=== PATIENT | female | born 1955 | race Caucasian/White ===

== ENCOUNTER → 2018-08-15 10:05 | Outpatient (CLI) | payer MEDICARE, BC | END | disposition home or self-care (01) | LOC: D.MAMMO 09:45 | DX: Z12.31 Encounter for screening mammogram for malignant neoplasm of breast (principal) ==

== ENCOUNTER → 2018-08-27 10:00 | Outpatient (CLI) | payer MEDICARE, BC ==
--- NOTE | 2018-08-30 12:11 | ST ---
PATIENT:SHARMILA GEORGE MEDICAL RECORD: [id number] SEX: F LOCATION:[facility] ORDER #: ADMISSION DATE: 08/27/18 AGE OF PATIENT: 63 REFERRING PHYSICIAN: INTERPRETING PHYSICIAN: TEODORA MILLAN MD DATE OF SERVICE: 08/27/2018 PROCEDURE: Nuclear stress test. INDICATION: Angina, abnormal ECG, shortness of breath. She was exercised on standard Lexiscan protocol with 33 mCi of sestamibi injected at peak stress and 11 mCi were used previously for rest images. FINDINGS: Gated SPECT reveals an excellent ejection fraction at 87% with good wall motion thickening and brightness throughout the segments. SPECT IMAGING: Cardiolite was used for a myocardial perfusion agent. There is homogeneous uptake throughout all segments at rest and stress with no evidence of inducible ischemia or previous infarction. OVERALL IMPRESSION: This is a normal rest-stress Cardiolite with no evidence of inducible ischemia or previous infarction. A gated SPECT reveals preserved ejection fraction greater than 60%. At this time I would evaluate noncardiac etiology of chest pain. TRANSINT:[id number] Voice Confirmation ID: [id number] DOCUMENT ID: [id number] TEODORA MILLAN MD at 1211 CC: [id number] DICTATION DATE: 08/28/18 1153 SMELTER OPERATOR: 08/29/18 0804 [facility] CLI 08/27/18 [id number] [place] [address]
== END | disposition home or self-care (01) ==
LOC: D.HCCARDIO 10:00
DX: I20.9 Angina pectoris, unspecified (principal)

== ENCOUNTER → 2018-09-12 17:12 | Outpatient (CLI) | payer MEDICARE, BC | END | disposition home or self-care (01) | LOC: D.MAMMO 10:00 | DX: R92.8 Other abnormal and inconclusive findings on diagnostic imaging of breast (principal) ==

== ENCOUNTER → 2019-02-13 10:15 | Outpatient (CLI) | payer MEDICARE, BC | END | disposition home or self-care (01) | LOC: D.MRI 10:15 | PROVIDERS: ATTEND Orthopaedic Surgery | DX: M67.40 Ganglion, unspecified site (principal) ==

== ENCOUNTER 2019-02-25 11:00 | Day surgery (SDC) | payer MEDICARE, BC ==
[2019-02-21 11:33] LABS: HEMATOCRIT 42.1 % (36.0-48.0); HEMOGLOBIN 14.3 g/dL (12-16); MCH 29.7 pg (26.0-34.0); MCV 87.5 fL (80.0-100.0); MEAN PLATELET VOLUME 10.4 fL (7.4-10.4); RBC 4.81 10x6/uL (4.00-5.40); RDW 13.6 % (11.5-14.5)
[~2019-02-25] VITALS: Ht 160 cm; Wt 73.0 kg
[~2019-02-25 11:00] MED LIST: CENTRUM SILVER1 EAC3 PO; CINNAMON500 MG PO; CO Q-10200 MG PO; LEVO-T25 MCG PO; RED YEAST RICE600 MG PO; TOPROL XL50 MG PO
[2019-02-25 11:41] VITALS: BP 139/77; Ht 160 cm; Wt 73.0 kg
[2019-02-25] MEDS ORDERED: DURICEF500 MG PO (16:34)
[2019-02-25] MEDS ORDERED: HYDROCODON-ACE1 EAC7 PO (16:34)
--- NOTE | 2019-02-25 17:54 | NUR ---
DC INSTRUCTIONS GIVEN TO PT/SPOUSE. STATE UNDERSTANDING.
--- NOTE | 2019-02-25 18:07 | NUR ---
DC'D IV CATH FULLY INTACT.
--- NOTE | 2019-02-25 18:13 | NUR ---
PT LEFT UNIT VIA WC AT 1616
--- NOTE | 2019-02-26 07:12 | OP ---
PATIENT NAME: SHARMILA BHANDARI MEDICAL RECORD: [id number] :53 LOCATION:D.OPS ADMISSION DATE: SURGEON: JAD SANTIAGO DO DATE OF OPERATION: 02/25/2019 PROCEDURE PERFORMED: Excision of ganglion cyst on the right foot. PREOPERATIVE DIAGNOSIS: Ganglion cyst on the right foot. POSTOPERATIVE DIAGNOSIS: Ganglion cyst on the right foot. INDICATIONS: Ms. Bhandari is a 64-year-old female who presented to my office with a ganglion cyst on the right foot. I got an MRI just to ensure that it was indeed a ganglion cyst and it was. She was tired of it rubbing on her shoe. It is on the lateral and dorsal aspect of her foot. She wants something done about it. I informed her of the risks including damage to sural nerve, infection, bleeding, recurrence of the cyst as there is a high recurrence rate of these. She was okay with that as well as the risks of blood clots and even . She signed the consent. SURGEON: Jad Santiago DO DESCRIPTION OF PROCEDURE: The patient was taken to the operative suite, laid in the supine position, given general anesthetic, and LMA was placed. She was given a gram of Ancef preoperatively. The right lower extremity was prepped and draped in sterile fashion. Time-out was performed and everyone was in agreement with correct side, site, patient, and procedure. The right foot was then exsanguinated with an Esmarch and tourniquet was inflated to 250 mmHg, but it was let down after 1 minute. I decided not to use tourniquet. The incision was made just over the cyst and careful dissection was made down around the cyst. It did rupture and then the cyst was removed all the way to the stalk. The stalk was then removed where the stalk had come off of the fourth and fifth metatarsals. The bipolar was used to cauterize it in hopes it would not return. The skin was then closed with 3-0 nylon in a horizontal mattress fashion and 10 mL of 0.25% Marcaine with epinephrine was injected in the site. Adaptic, 4 x 4, cast padding, and Chapo wrap were then placed on the foot. She was placed in postop shoe. She was awakened and taken to recovery in stable condition. BLOOD LOSS: Minimal. COMPLICATIONS: None. TRANSINT:[id number] Voice Confirmation ID: [id number] DOCUMENT ID: [id number] JAD SANTIAGO DO at 0712 CC: [id number] DICTATION DATE: 02/25/19 1637 MAINFRAME APPLICATIONS DEVELOPER: 02/25/191955 [facility] 02/25/19 [facility] [address] [id number]
== END 2019-02-25 18:16 | disposition home or self-care (01) ==
LOC: D.OPS 11:00
PROVIDERS: Anesthesiology; ATTEND Orthopaedic Surgery
DX: M67.471 Ganglion, right ankle and foot (principal); Z01.812 Encounter for preprocedural laboratory examination

== ENCOUNTER → 2019-04-14 18:19 | Outpatient (CLI) | payer MEDICARE, BC ==
[2019-02-25 11:41] VITALS: BMI 28.5
[~2019-04-14 18:19] MED LIST changes: +DURICEF500 MG PO; +HYDROCODON-ACE1 EAC7 PO
== END | disposition home or self-care (01) ==
LOC: D.LABREF 18:19
PROVIDERS: ATTEND Urology
DX: R31.9 Hematuria, unspecified (principal)

== ENCOUNTER → 2019-05-15 10:00 | Outpatient (CLI) | payer MEDICARE, BC ==
[2019-02-25 11:41] VITALS: BMI 28.5
== END | disposition home or self-care (01) ==
LOC: D.MAMMO 09:30
PROVIDERS: ATTEND Family Medicine
DX: R92.8 Other abnormal and inconclusive findings on diagnostic imaging of breast (principal)

== ENCOUNTER 2019-07-17 10:05 | Day surgery (SDC) | payer MEDICARE, BC ==
[2019-07-16 14:23] LABS: HEMATOCRIT 41.9 % (36.0-48.0); HEMOGLOBIN 13.9 g/dL (12-16); MCH 30.2 pg (26.0-34.0); MCHC 33.2 g/dL (31.0-37.0); MCV 90.9 fL (80.0-100.0); MEAN PLATELET VOLUME 9.4 fL (7.4-10.4); RBC 4.61 10x6/uL (4.00-5.40); RDW 12.7 % (11.5-14.5); WBC 7.5 10x3/uL (4.8-10.8)
[~2019-07-17] VITALS: Ht 160 cm; Wt 74.8 kg
[2019-07-17] MEDS ORDERED: VITAMIN D5000 UNIT (10:47)
[2019-07-17 10:53] VITALS: BP 159/56; Ht 160 cm; Wt 74.8 kg
[2019-07-17] MEDS ORDERED: HYDROCODON-ACE1 EAC7 PO (19:19)
--- NOTE | 2019-07-17 20:00 | NUR ---
VAGINAL PACKING REMOVED
--- NOTE | 2019-07-18 10:32 | OP ---
PATIENT NAME: SHARMILA GEORGE MEDICAL RECORD: [id number] :53 LOCATION:D.OPS ADMISSION DATE: SURGEON: DAVID WILLIAMSON MD DATE OF OPERATION: 07/17/2019 SURGEON: David Williamson MD ANESTHESIA: General anesthesia by David Worley MD DIAGNOSIS: Midline cystocele, Garland-Walker grade II, with incomplete bladder emptying. Potential for stress urinary incontinence due to hypermobile urethra. PROCEDURE: 1. Cystoscopy 2. Pubovaginal sling with mesh ([employer] Obtryx II mesh graft. 3. Cystocele repair using Coloplast axis cadaveric dermis graft, 8 x 12 cm. FINDINGS: On cystoscopy, single ureteral orifices bilaterally with no bladder tumors and no bladder injury. ESTIMATED BLOOD LOSS: Less than 100 mL. CLINICAL HISTORY: This is a 64-year-old female, A0, who had a hysterectomy in 1975 for retroverted uterus with pelvic pain. She has had issues with recurrent urinary tract infections since that time. Lately, she has noticed a bulge coming out from the vaginal area. She does not have any stress urinary incontinence. However, she does have hesitancy in getting started and there is a slow urinary flow. When we checked her postvoid residual it was 91 mL. On examination, she has a cystocele, Garland-Walker grade II, and rectocele Garland-Walker grade I. She does not have any issues with defecation. She did not have any stress urinary incontinence, but there is urethral hypermobility. Because of the risk of unmasking of occult stress urinary incontinence after reduction of the cystocele, I discussed placement of a pubovaginal sling prophylactically with the patient and she agreed to have this done. Risks of mesh use include graft infection, graft erosion or extrusion into the vagina. Dyspareunia and pelvic pain are other options. Postoperative urinary retention is also a risk. Continuation of incomplete bladder emptying, exacerbation or creation of a de mica urge urinary incontinence are also other potential adverse outcomes. She is aware of these risks, and she wishes to proceed with surgery. SHE IS ALLERGIC TO MULTIPLE MEDICATIONS. She was given Levaquin IV operations manager to the OR. DESCRIPTION OF PROCEDURE: The patient was given induction of general anesthesia. She was then placed into dorsal lithotomy position and prepped and draped. A weighted speculum was used to hold the posterior vaginal wall down. A Alas catheter was inserted into the bladder and put to bag drainage. #1 nylon sutures were used to retract labia majora laterally. These were anchored to the medial thighs. The cystocele was clearly visible. The anterior vaginal wall was then infiltrated with Pitressin solution. Twenty units of vasopressin was dissolved in 100 mL of injectable normal saline. This solution was injected into the anterior vaginal wall for hydrodissection. A transverse incision was then made at the level of the bladder neck. Dissection was then carried out using Metzenbaum scissors. I dissected the plane between the anterior vaginal wall and the undersurface of the bladder and urethra. The pubocervical ligaments were entered in to free up the lateral sides of the bladder. OPERATIVE REPORT [id number] SHARMILA GEORGE Anteriorly, the space of Retzius was entered into. The attachments to the pubocervical ligaments were detached. The presacral space was also entered into. Four suspensory sutures for the cystocele repair were then placed. The 2 posterior pair into the sacrospinous ligaments. They were placed, 1 cm medial to the ischial spine. The reason for moving 1 cm medial was to avoid hitting the internal pudendal arteries and nerves. 0 Prolene was used for this and this was placed using a JEDI MIND suture racing driver. The anterior sets of sutures were placed through the obturator membrane near the anterior apex. We then landmarked for the insertion of the transobturator pubovaginal sling. This was placed inferior to the insertion of the adductor longus muscle onto the descending pubic ramus. A spot was marked here on each side using a marking pen. A stab incision was then made here. The helical trocars were then passed through this spot and placed deep to the descending pubic ramus and the tip of the needle came out through the anterior apex of the obturator foramen. The helical needle then entered into the vaginal dissection space. Here the end of the pubovaginal sling was attached to the tip of the helical needle. The helical needles were then withdrawn resulting in transobturator passage of the pubovaginal sling. The midpoint of the sling was placed under the mid urethra. There was a tab here to indicate the midportion of the sling. Once the tab was located in correct position, the string on the tab holding the tab in place was cut and the tab was entirely removed. At this point, the sling was barely just touching the undersurface of the urethra. The Alas catheter was then removed and we performed cystoscopy with the 17-Czech cystoscope. There was no sign of bladder injury. There are no bladder tumors. The bladder was filled with normal saline. Once the bladder was full, the scope was removed. By gentle suprapubic pressure manually applied, we could elicit leakage of fluid per the urethra. The tension on the graft of the sling was gradually increased until very significant amounts of suprapubic pressure were required to elicit leakage of urine. At this point, the clear plastic sheath material on either side was removed by cutting the suture holding it in place and removing the sheath entirely while using a hemostat between the graft and the urethra to prevent increasing tension on the graft. The graft ends were then cut where they exited the inguinal stab incisions. The stab incisions were closed using simple interrupted 4-0 Vicryl sutures. The 4-0 Prolene Capio sutures were placed into the respective corners of an 8 x12 cadaveric dermis sheet. There was an arch cut out in the dermal sheet which would correspond to the posterior portion of the dermis sheath. This arch allowed for defecation otherwise the graft would impinge upon the rectum. At the apex of the arch distal to the apex of the arch to the opposite side a 6-cm. Once all 4 sutures were placed through the respective corners, the posterior corners were tied down first and then the anterior corners were tied down. This resulted in good reduction of the cystocele. I made sure that the cadaveric dermal graft lay completely flat under the bladder and that there were no folds or asymmetry. The wound was then irrigated out using normal saline and the transverse incision was closed using running 4-0 Monocryl. In and out catheterization was done to empty the bladder. The Alas catheter stayed out otherwise. She will have a voiding trial today. Vaginal packing consisting of Kerlix infiltrated with estrogen cream was placed into the vagina. This will also be removed prior to the patient going home. I will see the patient in followup early next week in followup to check on her voiding symptoms. TRANSINT:[id number] Voice Confirmation ID: [id number] DOCUMENT ID: [id number] OPERATIVE REPORT [id number] SHARMILA GEORGE ROBERT S MD at 1032 CC: [id number] DICTATION DATE: 07/17/19 1800 ZINC PLATING MACHINE OPERATOR: 07/17/19 2347 [facility] 07/17/19 [id number] [place] [address]
== END 2019-07-17 21:05 | disposition home or self-care (01) ==
LOC: D.OPS 10:05 → D.PAN 11:00 → D.OPS 11:30 → D.PAN 11:30 → D.OPS 12:15
PROVIDERS: Anesthesiology; ATTEND Urology
DX: N81.11 Cystocele, midline (principal); R33.9 Retention of urine, unspecified; N36.41 Hypermobility of urethra; E03.9 Hypothyroidism, unspecified; N39.0 Urinary tract infection, site not specified; N81.6 Rectocele

== ENCOUNTER → 2019-08-04 16:57 | Outpatient (CLI) | payer MEDICARE, BC ==
[~2019-08-04 16:57] MED LIST changes: +VITAMIN D5000 UNIT
== END | disposition home or self-care (01) ==
LOC: D.LABREF 16:57
PROVIDERS: ATTEND Urology
DX: R82.90 Unspecified abnormal findings in urine (principal)

== ENCOUNTER → 2020-02-02 09:27 | Outpatient (CLI) | payer MEDICARE, BC | END | disposition home or self-care (01) | LOC: D.US 09:27 | PROVIDERS: ATTEND Family Medicine | DX: I65.29 Occlusion and stenosis of unspecified carotid artery (principal) ==

== ENCOUNTER 2020-02-04 08:00 | Outpatient (CLI) | payer MEDICARE, BC | END 2020-02-04 23:59 | disposition home or self-care (01) | LOC: D.MAMMO 08:00 | PROVIDERS: ATTEND Family Medicine | DX: R92.8 Other abnormal and inconclusive findings on diagnostic imaging of breast (principal) ==

== ENCOUNTER 2020-12-22 15:30 | Outpatient (CLI) | payer MEDICARE, BC | END 2020-12-22 23:59 | disposition home or self-care (01) | LOC: D.MAMMO 15:30 | PROVIDERS: ATTEND Family Medicine | DX: R92.8 Other abnormal and inconclusive findings on diagnostic imaging of breast (principal) ==

== ENCOUNTER → 2021-01-27 15:31 | Outpatient (CLI) | payer MEDICARE, BC | END | disposition home or self-care (01) | LOC: D.MRI 15:31 | PROVIDERS: ATTEND Student in an Organized Health Care Education/Training Program | DX: N76.89 Other specified inflammation of vagina and vulva (principal) ==